=== PATIENT | female | born 1965 | race African-American/Black ===

== ENCOUNTER 2024-08-03 08:45 | Emergency (ER) | payer OTHER, SELFPAY ==
[2024-08-03 09:13] VITALS: BP 174/78; PULSE 51; RESP 16; TEMP 36.1; O2SAT 100
--- NOTE | 2024-08-03 09:41 | ED_ITS ---
HPI - Skin/Abscess/Foreign Bdy General Chief complaint: Skin/Abscess/Foreign Body Stated complaint: Skin Rash Time Seen by Provider: 08/03/24 09:33 Source: patient and RN notes reviewed Mode of arrival: ambulatory Limitations: no limitations History of Present Illness HPI narrative: Patient presents today complaining of a one-week history of painful itchy rash to the chest spreading to the bilateral upper breast area with the itching without rash to the lower neck. Symptoms worsened yesterday. She has tried some medicated powder and topical calamine lotion with mild short-term relief. No changes in her household products, exposures to new foods, plants or animals. She started a new Osteo BIflex medication a few weeks ago, but this is the only new thing in her life. Denies any additional symptoms. Related Data Home Medications ?Medication ?Instructions ?Recorded ?Confirmed ?Last Taken ?Type amlodipine 5 mg tablet mg 08/03/24 Unknown History aspirin 81 mg chewable tablet 08/03/24 Unknown History losartan 100 mg tablet mg 08/03/24 Unknown History metoprolol succinate 25 mg mg PO 08/03/24 Unknown History tablet,extended release 24 hr rosuvastatin 40 mg tablet mg 08/03/24 Unknown History Allergies Allergy/AdvReac Type Severity Reaction Status Date / Time No Known Allergies Allergy Verified 08/03/24 09:31 Review of Systems Review of Systems: CONSTITUTIONAL: Denies body aches, fever, chills, or sweats. EYES: Denies visual changes, redness, or discharge. ENT: Denies rhinorrhea, congestion, sore throat, or otalgia. CARDIOVASCULAR: Denies chest pain, palpitations, or edema. RESPIRATORY: Denies cough or dyspnea. GASTROINTESTINAL: Denies abdominal pain, nausea, vomiting, or diarrhea. GENITOURINARY: Denies dysuria or hematuria. SKIN: + rash MUSCULOSKELETAL: Denies back pain, joint pain, or myalgia. NEUROLOGIC: Denies headache, numbness, tingling, or weakness. PSYCH: Denies depression or anxiety. PMFSH Comments At time of signature, I have reviewed and agree with nursing past medical, surgical, social and family history unless otherwise noted. Please see nursing chart for further information. There is no relevant family history pertinent to the presenting complaint Exam Narrative: GENERAL: Well-appearing, well-nourished, and in no acute distress. HEAD: Normocephalic, atraumatic. EYES: EOMI. No redness or drainage. Conjunctivae normal. ENT: Mucous membranes pink and moist. NECK: Normal AROM. No rash noted to the neck CHEST: No respiratory distress. EXTREMITIES: Normal range of motion. No edema. SKIN: Warm, dry. Capillary refill normal. Normal skin turgor. Mildly erythematous macular rash with some scattered faint tiny papules to the midline chest extending to the upper breasts. No crusting, drainage, vesicles, pustules noted. NEURO: No focal deficits. Alert and oriented x3. Gait steady. PSYCH: Normal affect. No signs of depression or anxiety. Course Course Level of Care: Express Care Visit Vital Signs Vital signs: Vital Signs Temperature 96.9 F L 08/03/24 09:13 Pulse Rate 51 L 08/03/24 09:13 Respiratory Rate 16 08/03/24 09:13 Blood Pressure 174/78 H 08/03/24 09:13 Pulse Oximetry 100 08/03/24 09:13 Oxygen Delivery Room Air 08/03/24 09:13 Temperature 96.9 F L 08/03/24 09:13 Pulse Rate 51 L 08/03/24 09:13 Respiratory Rate 16 08/03/24 09:13 Blood Pressure 174/78 H 08/03/24 09:13 Pulse Oximetry 100 08/03/24 09:13 Oxygen Delivery Room Air 08/03/24 09:13 Reviewed MDM - Skin/Abscess/Foreign Bdy MDM Narrative Medical decision making narrative: Patient will be treated with prednisone for dermatitis of unknown etiology. Rash does not appear to be cellulitic or herpetic. Anticipatory guidance given. Differential Diagnosis Differential diagnosis: Likely abscess of skin or subcutaneous tissue, viral exanthem, dermatophytosis, urticaria, herpes zoster, cellulitis, eczema, impetigo and contact dermatitis Critical Care Time Critical Care Time Critical Care Time: No Discharge Plan Discharge Clinical Impression: Dermatitis Patient Disposition: Home, Self-Care Condition: Stable Instructions: Dermatitis (ED) Additional Instructions: Please take the prednisone as directed. You may continue the topical treatments that you been using as well. You may also try some Tylenol or ibuprofen for your discomfort. Follow-up with your PCP in 4-5 days if symptoms are not improving, or sooner if symptoms worsen. Your blood pressure was elevated above 120/80 today at Urgent Care. This puts you above the threshold for follow up. Please schedule a followup visit with your personal physician as soon as possible, for further evaluation and treatment. Even blood pressure exceeding 120/80 may indicate pre-hypertension. Patient Language: Nepali Prescriptions: New prednisone 10 mg tablet See Rx Instructions .ROUTE .COMPLEX Qty: 36 0RF Rx Instructions: 6 tabs daily x3 days,then 4 tabs daily x3 days,then 2 tabs daily x3 days No Action amlodipine 5 mg tablet aspirin 81 mg tablet,chewable metoprolol succinate 25 mg tablet extended release 24 hr PO losartan 100 mg tablet rosuvastatin 40 mg tablet Follow-up/Referrals: Jeff Jung MD [Primary Care Provider] - Time of Disposition: 09:48
== END 2024-08-03 09:56 | disposition home or self-care (01) ==
PROVIDERS: Emergency Provider Nurse Practitioner; PCP Family Medicine
DX: L30.9 Dermatitis, unspecified (principal)
CPT/HCPCS: 99203; G0463